=== PATIENT | female | born 1990 | race Caucasian/White ===

== ENCOUNTER 2016-08-03 21:37 | Emergency (ER) | payer MEDICAID, OTHER ==
[~2016-08-03] VITALS: Ht 162.6 cm; Wt 59.1 kg
[2016-08-03 21:54] VITALS: BP 110/75; PULSE 75; RESP 16; O2SAT 99
--- NOTE | 2016-08-03 23:44 | ED.REPORT ---
HPI-General Illness Date of Service Aug 03, 2016 ED Provider: Lalo Lombardi MD PT is a 26 year old female with a history of detox (4x) who presents to the ED wanting to go into detox for heroin, methamphetamine, cocaine, and Xanax. Pt also presents with diagnosed tonsillitis (onset 1 week ago), for which she was prescribed antibiotics for 5 days without improvement. She deniies any other symptoms. She reports that she was [facility] at 15:00, but she has not been provided any medication to help with her detox and presents to the ED for medication to help with her withdrawals while going through detox. The pt does not know when her last menstruation was, but she denies . Her last use of methadone was 12 days ago for 3 days. Her last use of heroin was at 16:00 via IV in her arm, and she also reports using methamphetamine this morning. She denies neck IV injections. The pt reports that typically she uses Xanax 2 mg/day and cocaine every 4 days. Seen [address] [facility] treated for "tonsillitis" on day #5of clindamycin. Nursing Notes Stated Complaint: SUBSTANCE ABUSE Chief Complaint: Substance Abuse Nursing Notes Reviewed: Yes Allergies: Coded Allergies: No Known Allergies (Unverified , 08/03/16) General Time Seen by MD: 23:43 Chief Complaint Other (Detox) Hx Obtained From: Patient Arrived By: Walk-in Sudden in Onset?: No Onset Occurred: Onset unknown Symptom Duration: Since onset Location: : Mouth Quality: Painful Severity: Current: Moderate Severity: Maximum: Moderate Recent Healthcare: No recent doctor visit, No recent hospitalization Similar Sx Previous: Yes Past Medical History Past Medical History Denies Denies: Congestive heart failure, Diabetes mellitus, Hypertension Past Surgical History Denies Smoking History Current Every Day Smoker Social History Alcohol Use: Denies alcohol use Drug Use: Cocaine, Meth, Xanax Other Social History: , Lives with children (3 year old daughter) Ambulatory Status Independent Review of Systems Full Review of Systems Constitutional: Denies: Fever Ears / Nose / Throat: Reports: Throat pain, Throat swelling Respiratory: Denies: Non-productive cough Complete sys rev & neg: except as marked. Physical Exam alert NAD normal phonation Vital Signs Vital Signs Date Time Temp Pulse Resp B/P Pulse Ox O2 Delivery O2 Flow Rate FiO2 08/04/16 02:00 36.8 76 18 103/69 100 Room Air 08/04/16 00:36 87 18 114/72 98 Room Air 08/03/16 21:54 36.9 75 16 110/75 99 Room Air Initial VS: Reviewed Neck: Full range of motion Respiratory: Breath sounds normal, Clear to auscultation, No respiratory distress Extremities: Vascular intact, Neuro intact Skin: Warm, Dry Neurologic: Alert, Oriented, Nonfocal General/Constitutional: Awake, Alert, Cooperative Head / Eyes: Atraumatic, Normocephalic Pupils are dilated. ENT: Atraumatic, Airway patent, Mucous membranes moist Peritonsillary abscess. Cardiovascular: Heart rate NL, Regular rhythm, Heart sounds NL, No gallop, No murmurs Interpretation & Diagnostics Lab Results Interpretation Test 08/04/16 00:25 Hold Purple Top Tube Received (Received) Hold Blue Top Tube Received (Received) Hold [place] Top Tube Received (Received) Re-Eval/Medical Decision Med Decision/Clinical Course 26-year-old female who is withdrawing from opiates. She also uses methamphetamine and benzodiazepines at times. From the story she gives me, I do not believe that her benzodiazepine use is frequent enough to make withdrawal risk. She does not appear to be withdrawing from benzos at this point. In addition she has a peritonsillar abscess. Given that she was started on clindamycin 5 days ago in [place] for this, it may be that the actual diagnosis at that time was peritonsillar abscess. We have given her IV fluids and steroids and Rocephin here. Will have 24-hour follow-up in the emergency department. I believe the patient is appropriate to return to crisis, we will send her back with Zofran and Imodium and a few Percocet for pain. Source of Hx: Old records Time of Eval: 01:40 Patient Status: Condition improved Re-Evaluation/Progress Note: Pt rechecked. Informed pt of plan for discharge. Pt understands and agrees with plan for discharge. F/U instructions and RTER warnings given. All questions addressed. Counseled Regarding: Diagnosis, Lab results, Need for follow-up, When/why to return to ED Discharge & Departure Primary Impression: Peritonsillar abscess Additional Impression: Opiate withdrawal Disposition: Home Discharge Condition All VS Reviewed: Yes Condition: Stable Patient Instructions: Peritonsillar Abscess (ED) Additional Instructions: Emergency department evaluation tonight included interview and examination. Sore throat is due to a left peritonsillar abscess. We gave IV fluids antibiotics and steroids this should help you feel better soon. Continue the clindamycin as prescribed previously. May use oxycodone/APAP one to 2 every 4- 6 hours as needed for pain. Recommend a cool soft diet. Return emergency department after 6 PM on Saturday for reevaluation. May use ondansetron as needed for nausea. Imodium as needed for diarrhea. Follow-up as outpatient with the Suboxone prescriber. Referrals: Memo Mosquera MD Attestation Portions of this note were transcribed by Rossy Tadeo. I, Dr. Lombardi personally performed the history, physical exam and medical decision-making; I reviewed and confirmed the accuracy of the information in the transcribed note. Signed by : Avery Swanson, 08/03/16 and 00:50. copies to: Memo Mosquera MD, Donald L MD Aug 03, 2016 23:44 Rossy Troy Aug 03, 2016 23:54
[2016-08-03] MEDS ORDERED: 0.9% Sodium Chloride 1,000 ML IV ONE (23:58)
[2016-08-04] MEDS ORDERED: _Ondansetron ODT 4 mg Tablet PO PRN
[2016-08-04] MEDS ORDERED: _oxyCODONE/APAP 5-325 mg Tablet PO PRN
[2016-08-04] MEDS ORDERED: Ondansetron 2 mg/mL 2 mL Inj IV PRN
[2016-08-04] MEDS ORDERED: Dexamethasone Inj 10 MG in 0.9% Sodium Chloride-Pha MIX 50 ML IV ONE ×2
[2016-08-04] MEDS ORDERED: cefTRIAXone Inj 2,000 MG in Dextrose 5% Minibag Plus 50 ML IV ONE ×2
[2016-08-04] MEDS ORDERED: HYDROmorphone 1 mg/mL Inj IVPUSH PRN
[2016-08-04 00:36] VITALS: BP 114/72; PULSE 87; RESP 18; O2SAT 98
[2016-08-04] MEDS ORDERED: 0.9% Sodium Chloride 1,000 ML IV ONE (01:05)
[2016-08-04 02:00] VITALS: BP 103/69; PULSE 76; RESP 18; O2SAT 100
[2016-08-05] MEDS ORDERED: CLON0.2T PO (05:40)
[2016-08-05] MEDS ORDERED: IBUP-1827 PO (05:40)
[2016-08-05] MEDS ORDERED: LOPE2TAB32 PO (05:40)
[2016-08-05] MEDS ORDERED: LORA1TAB PO (05:40)
[2016-08-05] MEDS ORDERED: ONDA-54 PO (05:40)
== END 2016-08-04 02:02 | disposition home or self-care (01) ==
LOC: SED 21:37
DX: J36 Peritonsillar abscess (principal); F11.23 Opioid dependence with withdrawal; F17.200 Nicotine dependence, unspecified, uncomplicated
CPT/HCPCS: 81025; 96361; 96365; 96375; 99285; J0696; J1100; J1170; J2405; J7030

== ENCOUNTER 2016-08-04 20:01 | Emergency (ER) | payer OTHER ==
[~2016-08-04] VITALS: Ht 162.6 cm; Wt 63.6 kg
[2016-08-04 20:12] VITALS: BP 136/91; RESP 20; O2SAT 99
--- NOTE | 2016-08-04 23:47 | ED.REPORT ---
HPI-General Illness Date of Service Aug 04, 2016 ED Provider: Chirag Griggs MD A 26 year old female with a history of polysubstance abuse presents to the ED complaining of throat pain. The pt has been experiencing this pain for several days and was seen in the ED yesterday. She was diagnosed with tonsillitis and prescribed clindamycin, but has been unable to take it consistently due to vomiting from withdrawal. The pt is currently staying at [facility] for detox from heroin. Nursing Notes Stated Complaint: THROAT PAIN Chief Complaint: ENT & Mouth Nursing Notes Reviewed: Yes Allergies: Coded Allergies: No Known Allergies (Unverified , 08/03/16) Scheduled PRN Clonidine (Clonidine) 0.2 Mg Tablet 0.2 MG PO TID PRN PRN Withdrawal Symptoms Ibuprofen (Ibuprofen) 600 Mg Tablet 600 MG PO QID PRN PRN For Pain Loperamide (Loperamide) 2 Mg Tablet 2 MG PO Q4H PRN PRN For Diarrhea or Loose Stool Lorazepam (Lorazepam) 1 Mg Tablet 1 MG PO HS PRN PRN For Insomnia Ondansetron (Ondansetron) 8 Mg Tablet 8 MG PO QID PRN PRN For Nausea General Time Seen by MD: 23:47 Chief Complaint Other (Throat pain) Hx Obtained From: Patient Arrived By: Walk-in Sudden in Onset?: No Symptom Duration: Since onset Recent Healthcare: No recent hospitalization, Recent doctor visit Similar Sx Previous: Yes Past Medical History Past Medical History none reported Past Surgical History none reported Smoking History Current Every Day Smoker Social History Alcohol Use: Denies alcohol use Drug Use: Cocaine, IV drugs (heroin), Meth, Xanax Other Social History: , Lives with children Ambulatory Status Independent Review of Systems Full Review of Systems Ears / Nose / Throat: Reports: Throat pain Cardiovascular: Denies: Chest pain GI: Reports: Nausea, Vomiting Musculoskeletal: Denies: Back pain Skin: Denies Rash Complete sys rev & neg: except as marked. Physical Exam Vital Signs Vital Signs Date Time Temp Pulse Resp B/P Pulse Ox O2 Delivery O2 Flow Rate FiO2 08/05/16 06:05 36.3 66 16 124/86 98 Room Air 08/05/16 04:26 76 18 131/96 99 Room Air 08/05/16 02:18 37.3 74 138/94 99 Room Air 08/04/16 20:12 36.7 87 20 136/91 99 Room Air Initial VS: Reviewed General/Constitutional: Awake, Alert actively vomiting Head / Eyes: Atraumatic, Normocephalic, PERRL, EOMI ENT: Atraumatic, Airway patent Mouth: Positive: Mucous membranes dry throat is erythematous tonsils mobile, left more prominent than right Neck: Atraumatic, Supple, Full range of motion Respiratory / Chest: Atraumatic, Breath sounds NL, Breath sounds = bilat, No respiratory distress Cardiovascular: Heart rate NL, Regular rhythm, Heart sounds NL Abdomen: Atraumatic, Soft, Non-tender Back: Atraumatic, Full range of motion Upper Extremities Upper Extremity / MS: Atraumatic, Full range of motion Lower Extremity / Pelvis / MS: Atraumatic, Full range of motion Skin: Atraumatic, Color NL, No rash, Warm, Dry Neurologic: Oriented X3, Speech NL, No motor deficits, No sensory deficits Psychiatric: Affect NL, Mood NL Interpretation & Diagnostics Lab Results Interpretation Result Diagram: 08/04/16 2321 08/04/16 2321 Test 08/04/16 23:21 08/05/16 01:43 White Blood Count 13.4th/mm3 (3.8-10.1) Red Blood Count 4.59mil/mm3 (3.90-5.20) Hemoglobin 13.7g/dL (12.0-15.6) Hematocrit 40.0% (35.0-46.0) Mean Corpuscular Volume 87.1fL (81-100) Mean Corpuscular Hemoglobin 29.8pg (27.0-35.0) Mean Corpuscular Hemoglobin Concent 34.3% (32.0-37.0) Red Cell Distribution Width 12.8% (12.3-15.4) Platelet Count 556bil/L (150-400) Neutrophils (%) (Auto) 78.0% (40-74) Lymphocytes (%) (Auto) 17.5% (14-46) Monocytes (%) (Auto) 3.9% (4-12) Eosinophils (%) (Auto) 0% (0-5) Basophils (%) (Auto) 0.1% (0-3) Hold Purple Top Tube Received (Received) Hold Blue Top Tube Received (Received) Sodium Level 137mEq/L (134-144) Potassium Level 4.1mEq/L (3.5-5.2) Chloride Level 93mEq/L (97-108) Carbon Dioxide Level 24mmol/L (18-29) Blood Urea Nitrogen 13mg/dL (6-20) Creatinine 0.55mg/dL (0.57-1.00) Estimat Glomerular Filtration Rate 190mL/min (>59) Glucose Level 108mg/dL (60-99) Calcium Level 10.5mg/dL (8.5-10.1) Total Bilirubin 0.3mg/dL (0.0-1.2) Aspartate Amino Transf (AST/SGOT) 19U/L (0-50) Alanine Aminotransferase (ALT/SGPT) 19U/L (0-32) Alkaline Phosphatase 85U/L (25-150) Total Protein 8.9g/dL (6.4-8.4) Albumin 4.6g/dL (3.4-5.0) Lipase 13U/L (13-60) Hold [place] Top Tube Received (Received) Hold [place] Top Tube Received (Received) Urine Color Yellow (YELLOW) Urine Appearance Cloudy (CLEAR,HAZY) Urine pH 6.5 (5.0-8.0) Urine Specific [place] 1.020 (1.003-1.035) Urine Protein 30mg/dL (NEG,TRACE) Urine Glucose (UA) Negativemg/dL (NEGATIVE) Urine Ketones >80mg/dL (NEGATIVE) Urine Occult Blood Negative (NEGATIVE) Urine Nitrite Negative (NEGATIVE) Urine Bilirubin Negative (NEGATIVE) Urine Urobilinogen Normalmg/dL (NORMAL) Urine Leukocyte Esterase Negative (NEGATIVE) Urine RBC 0-2/hpf (0-2) Urine WBC 0-5/hpf (0-5) Urine Epithelial Cells Many/hpf (NONE-MOD) Urine Crystals Amorphous urates (NONE Urine Bacteria Few/hpf (NONE-FEW) Urine Hyaline Casts None/lpf (NONE) Urine Granular Casts None seen (NONE SEEN) Urine Waxy Casts None seen (NONE SEEN) Urine Red Blood Cell Casts None seen (NONE SEEN) Urine White Blood Cell Casts None seen (NONE SEEN) Urine Mucus Present (None Seen) Urine Trichomonas None seen (NONE SEEN) Urine Yeast None (NONE SEEN) Urinalysis Comment None Urine Culture Reflexed Not indicated Re-Eval/Medical Decision Med Decision/Clinical Course 26-year-old in active withdrawal from heroin, presents vomiting actively and unable to keep down prescribed meds for which rales, as well as for her sore throat. Given Subutex here with relief of her immediate withdrawal symptoms. She is now able to keep down clonidine. She was given Rocephin 2 g IV and some Decadron for her sore throat. Now taking fluids and meds without difficulty. Discharge back to crisis in stable condition. Source of Hx: Old records Time of Eval: 01:22 Re-Evaluation/Progress Note: Pt rechecked, who is no longer actively retching. Further physical exam is performed. Time of Eval: 05:33 Re-Evaluation/Progress Note: Pt rechecked, who is resting comfortably. The diagnosis and plan for discharge are discussed. The pt understands and agrees with the plan. All questions are addressed at this time. Counseled Regarding: Diagnosis, Lab results, Need for follow-up, When/why to return to ED Discharge & Departure Primary Impression: Pharyngitis Pharyngitis/tonsillitis etiology: unspecified etiology Qualified Code: J02.9 - Acute pharyngitis, unspecified Additional Impression: Opiate withdrawal Disposition: Home Discharge Condition All VS Reviewed: Yes Condition: Stable Patient Instructions: Pharyngitis (ED) Additional Instructions: Clonidine one tablet 2-3 times daily as needed for withdrawal symptoms Ativan as needed at night for sleep Zofran four times daily as needed for nausea Loperamide if needed for diarrhea, up to every two hours Ibuprofen as needed for pain, every six hours. Resume your clindamycin tomorrow. Referrals: [facility] [place] Attestation Portions of this note were transcribed by Surinder Lang. I, Dr. Griggs personally performed the history, physical exam and medical decision-making; I reviewed and confirmed the accuracy of the information in the transcribed note. Signed by: Avery Leal, 08/05/2016 and [id number]. copies to: [facility] Chirag Griggs MD Aug 04, 2016 23:47 SURINDER LANG Aug 04, 2016 23:57
[2016-08-04] MEDS ORDERED: 0.9% Sodium Chloride 1,000 ML IV ONE ×2 (23:52→23:55)
[2016-08-04] MEDS ORDERED: Buprenorphine 2 mg SL Tablet SL ONE (23:55)
[2016-08-04] MEDS ORDERED: Ondansetron 2 mg/mL 2 mL Inj IVPUSH ONE (23:55)
[2016-08-04] MEDS ORDERED: Pantoprazole 4 mg/mL 10 mL Inj IVPUSH ONE (23:55)
[2016-08-05 00:02] LABS: BASOPHILS % (AUTO) 0.1 % (0-3); EOSINOPHILS % (AUTO) 0 % (0-5); MONOCYTES % (AUTO) 3.9 % (4-12); Mean Corpuscular Hemoglobin 29.8 pg (27.0-35.0); Mean Corpuscular Volume 87.1 fL (81-100); Platelet Count 556 bil/L (150-400)
[2016-08-05] MEDS ORDERED: Dexamethasone Inj 20 MG in 0.9% Sodium Chloride-Pha MIX 50 ML IV ONE (01:25)
[2016-08-05] MEDS ORDERED: cefTRIAXone Inj 2,000 MG in Dextrose 5% Minibag Plus 50 ML IV ONE (01:25)
[2016-08-05 02:02] LABS: APPEARANCE,URINE CLOUDY (CLEAR,HAZY); COLOR,URINE YELLOW (YELLOW); OCCULT BLOOD,URINE NEGATIVE (NEGATIVE); PH,URINE 6.5 (5.0-8.0); UROBILINOGEN,URINE NORMAL (NORMAL)
[2016-08-05 02:18] VITALS: BP 138/94; PULSE 74; O2SAT 99
[2016-08-05 04:26] VITALS: BP 131/96; PULSE 76; RESP 18; O2SAT 99
[2016-08-05] MEDS ORDERED: ONDA-54 PO (05:40)
[2016-08-05] MEDS ORDERED: IBUP-1827 PO (05:40)
[2016-08-05] MEDS ORDERED: LORA1TAB PO (05:40)
[2016-08-05] MEDS ORDERED: LOPE2TAB32 PO (05:40)
[2016-08-05] MEDS ORDERED: CLON0.2T PO (05:40)
[2016-08-05 06:05] VITALS: BP 124/86; PULSE 66; RESP 16; O2SAT 98
== END 2016-08-05 06:06 | disposition home or self-care (01) ==
LOC: SED 20:01
DX: J02.9 Acute pharyngitis, unspecified (principal); F11.23 Opioid dependence with withdrawal; F17.200 Nicotine dependence, unspecified, uncomplicated
CPT/HCPCS: 80053; 81000; 83690; 85025; 96361; 96365; 96375; 99285; J0696; J1100; J1885; J2405; J7030

== ENCOUNTER 2016-10-22 00:21 | Emergency (ER) | payer OTHER ==
[~2016-10-22] VITALS: Ht 162.6 cm; Wt 61.4 kg
[~2016-10-22 00:21] MED LIST: CLON0.2T PO; IBUP-1827 PO; LOPE2TAB32 PO; LORA1TAB PO; ONDA-54 PO
[2016-10-22 00:27] VITALS: BP 131/90; PULSE 71; RESP 16; O2SAT 98
--- NOTE | 2016-10-22 00:35 | ED.REPORT ---
HPI-Abd Pain F Under 40 Date of Service Oct 22, 2016 ED Provider: Dr. Griggs Pt is a 26 year old female with a hx of IV cocaine use presenting to the ED complaining of sudden onset right upper quadrant abdominal pain onset 3 hours ago right after eating apple crisp. She denies any previous hx of gallstones. Associated symptoms include vomiting. Denies fever, chills, SOB or wheezing. She states that she has not used drugs in 2 months. She was seen at the [facility] about 5 days ago to be cleared for prison care at a drug detox facility. Nursing Notes Stated Complaint: ABDOMINAL PAIN Chief Complaint: Female Abdominal Pain Nursing Notes Reviewed: Yes Allergies: Coded Allergies: No Known Allergies (Unverified , 08/03/16) Scheduled Cefuroxime Axetil (Cefuroxime) 500 Mg Tablet 500 MG PO BID Omeprazole (Omeprazole) 20 Mg Tablet.dr 20 MG PO DAILY Scheduled PRN Clonidine (Clonidine) 0.2 Mg Tablet 0.2 MG PO TID PRN PRN Withdrawal Symptoms Ibuprofen (Ibuprofen) 600 Mg Tablet 600 MG PO QID PRN PRN For Pain Loperamide (Loperamide) 2 Mg Tablet 2 MG PO Q4H PRN PRN For Diarrhea or Loose Stool Lorazepam (Lorazepam) 1 Mg Tablet 1 MG PO HS PRN PRN For Insomnia Ondansetron (Ondansetron) 8 Mg Tablet 8 MG PO QID PRN PRN For Nausea Tramadol (Tramadol) 50 Mg Tablet 100 MG PO Q6H PRN PRN For Pain General Time Seen by MD: 00:35 Chief Complaint Abdominal pain Hx Obtained From: Patient Arrived By: Walk-in Sudden in Onset?: Yes Onset Occurred: 1 - 4 hours ago Context of Onset: Eating Symptom Duration: Since onset Progression since Onset: Constant Location: : RUQ Quality: Painful Severity: Current: Severe Severity: Maximum: Severe Recent Healthcare: No recent doctor visit, No recent hospitalization Similar Sx Previous: No Past Medical History Past Medical History none reported Past Surgical History none reported Smoking History Current Every Day Smoker Social History Alcohol Use: Denies alcohol use Drug Use: Cocaine, IV drugs, Meth, Xanax Other Social History: , Lives with children Ambulatory Status Independent Review of Systems Constitutional: Denies: Chills, Fever Respiratory: Denies: Shortness of breath, Wheezing GI: Reports: Abdominal pain, Nausea, Vomiting Complete sys rev & neg: except as marked. Physical Exam Initial Vital Signs Vital Signs (First) Date Time Temp Pulse Resp B/P Pulse Ox O2 Delivery O2 Flow Rate FiO2 10/22/16 00:27 36.4 71 16 131/90 98 10/22/16 04:15 Room Air Initial VS: Reviewed Head / Eyes: Atraumatic, Normocephalic, PERRL ENT: Mucous membranes moist, Conjunctiva normal, No scleral icterus Extremities: Vascular intact, Neuro intact, No swelling, No tenderness Neurologic: Alert, Oriented, Nonfocal Psychiatric: Mood/affect normal, Behavior normal, Normal thought content General/Constitutional: Awake, Alert Respiratory / Chest: Atraumatic, Breath sounds NL, Breath sounds = bilat, No respiratory distress Cardiovascular: Heart rate NL, Regular rhythm, Heart sounds NL Abdomen: Atraumatic, BS normoactive Tenderness/Guarding/Rebound: Positive: Tender RUQ... (Severe) Back: Atraumatic, Inspection NL Interpretation & Diagnostics Lab Results Interpretation Result Diagram: 10/22/16 0107 10/22/16 0107 Test 10/22/16 01:07 10/22/16 01:22 White Blood Count 18.4th/mm3 (3.8-10.1) Red Blood Count 4.72mil/mm3 (3.90-5.20) Hemoglobin 14.4g/dL (12.0-15.6) Hematocrit 41.8% (35.0-46.0) Mean Corpuscular Volume 88.6fL (81-100) Mean Corpuscular Hemoglobin 30.5pg (27.0-35.0) Mean Corpuscular Hemoglobin Concent 34.4% (32.0-37.0) Red Cell Distribution Width 13.8% (12.3-15.4) Platelet Count 460bil/L (150-400) Neutrophils (%) (Auto) 59% (40-74) Lymphocytes (%) (Auto) 31% (14-46) Monocytes (%) (Auto) 9% (4-12) Eosinophils (%) (Auto) 1% (0-5) Basophils (%) (Auto) 0% (0-3) Hematology Comments Prothrombin Time 9.3sec (8.1-12.5) Prothromb Time International Ratio 0.87ratio Sodium Level 140mEq/L (134-144) Potassium Level 4.4mEq/L (3.5-5.2) Chloride Level 98mEq/L (97-108) Carbon Dioxide Level 25mmol/L (18-29) Blood Urea Nitrogen 17mg/dL (6-20) Creatinine 0.72mg/dL (0.57-1.00) Estimat Glomerular Filtration Rate 139mL/min (>59) Glucose Level 101mg/dL (60-99) Calcium Level 9.8mg/dL (8.5-10.1) Magnesium Level 2.2mg/dL (1.6-2.6) Total Bilirubin 0.2mg/dL (0.0-1.2) Aspartate Amino Transf (AST/SGOT) 16U/L (0-50) Alanine Aminotransferase (ALT/SGPT) 27U/L (0-32) Alkaline Phosphatase 74U/L (25-150) Total Protein 7.4g/dL (6.4-8.4) Albumin 4.4g/dL (3.4-5.0) Lipase 46U/L (13-60) Hold [place] Top Tube Received (Received) Urine Color Yellow (YELLOW) Urine Appearance Cloudy (CLEAR,HAZY) Urine pH 6.5 (5.0-8.0) Urine Specific [place] 1.015 (1.003-1.035) Urine Protein Negativemg/dL (NEG,TRACE) Urine Glucose (UA) Negativemg/dL (NEGATIVE) Urine Ketones Negativemg/dL (NEGATIVE) Urine Occult Blood Trace (NEGATIVE) Urine Nitrite Negative (NEGATIVE) Urine Bilirubin Negative (NEGATIVE) Urine Urobilinogen Normalmg/dL (NORMAL) Urine Leukocyte Esterase Small (NEGATIVE) Urine RBC 0-2/hpf (0-2) Urine WBC 6-10/hpf (0-5) Urine Epithelial Cells Few/hpf (NONE-MOD) Urine Crystals Amorphous urates (NONE Urine Bacteria Few/hpf (NONE-FEW) Urine Hyaline Casts None/lpf (NONE) Urine Granular Casts None seen (NONE SEEN) Urine Waxy Casts None seen (NONE SEEN) Urine Red Blood Cell Casts None seen (NONE SEEN) Urine White Blood Cell Casts None seen (NONE SEEN) Urine Mucus Present (None Seen) Urine Trichomonas None seen (NONE SEEN) Urine Yeast None (NONE SEEN) Urinalysis Comment None Urine Culture Reflexed Indicated CT Abd / Pelvis Interpretation CONCLUSION: No CT evidence of acute intra-abdominal pathology only questionable wall thickening of the gallbladder. This could be further evaluated with ultrasound if the patient has right upper quadrant pain. This report was transmitted to the emergency room at 10/22/2016 - 2:38:43 AM PDT. Interpretation / Wet Read by: Interpret - Radiologist Re-Eval/Medical Decision Med Decision/Clinical Course Med Decision/Clinical Course: 26-year-old with a history of IV cocaine abuse and two months of right knee since, presents with right quadrant abdominal pain after eating apple crisp. Pain is subsided slowly here. LFTs were unremarkable. White count is elevated at 18,000. Urinalysis incidentally positive for UTI. CT abdomen and pelvis shows thickening of gallbladder wall without visible stones, but CT is notoriously insensitive for noncalcified stones. Suspect she has gallbladder disease and that this is biliary colic. Low fat diet. Home with tramadol, Zofran, and follow up with PCP for ultrasound fasting a.m. study. Discharged with Ceftin for UTI. Re-Evaluation/Progress : Time of Eval: 03:16 Patient Status: Condition improved Re-Evaluation/Progress Note: Discussed CT results and plan for discharge. Pt understands and agrees with plan. Counseled Regarding: Diagnosis, Lab results, Need for follow-up, When/why to return to ED Discharge & Departure Primary Impression: Biliary colic Additional Impressions: Urinary tract infection Urinary tract infection type: site unspecified Hematuria presence: without hematuria Qualified Code: N39.0 - Urinary tract infection, site not specified Intravenous drug abuse Disposition: Home Discharge Condition All VS Reviewed: Yes Condition: Improved Patient Instructions: Biliary Colic (ED), Low Fat Diet (ED), Urinary Tract Infection in Women (ED) Additional Instructions: I suspect to have biliary stones not seen on CT. This requires a fasting morning ultrasound to evaluate further. Contact your doctor in the office to arrange that test. Eat very low fat diet. Avoid stimulating the gallbladder to avoid episodes like this. Begin omeprazole daily. For the urinary tract infection, Begin Ceftin twice daily for seven days. Referrals: OTHER,PHYSICIAN Scribe Attestation Portions of this note were transcribed by Sherry Farrar. I, Dr. Griggs personally performed the history, physical exam and medical decision-making; I reviewed and confirmed the accuracy of the information in the transcribed note. Signed by: Avery Rodriguez, 10/21/2016. Chirag Griggs MD Oct 22, 2016 00:35 SHERRY FARRAR Oct 22, 2016 00:46
[2016-10-22] MEDS ORDERED: 0.9% Sodium Chloride 1,000 ML IV ONE (00:49)
[2016-10-22] MEDS ORDERED: Ondansetron 2 mg/mL 2 mL Inj IVPUSH ONE (00:50)
[2016-10-22 01:12] LABS: Mean Corpuscular Hemoglobin 30.5 pg (27.0-35.0); Mean Corpuscular Volume 88.6 fL (81-100); Platelet Count 460 bil/L (150-400)
[2016-10-22 01:27] LABS: INR 0.87 ratio
[2016-10-22 01:28] LABS: BASOPHILS % (AUTO) 0 % (0-3); EOSINOPHILS % (AUTO) 1 % (0-5); MONOCYTES % (AUTO) 9 % (4-12); NEUTROPHILS % (AUTO) 59 % (40-74)
[2016-10-22 01:32] LABS: APPEARANCE,URINE CLOUDY (CLEAR,HAZY); COLOR,URINE YELLOW (YELLOW); OCCULT BLOOD,URINE TRACE (NEGATIVE); PH,URINE 6.5 (5.0-8.0); UROBILINOGEN,URINE NORMAL (NORMAL)
[2016-10-22 01:46] LABS: Magnesium 2.2 mg/dL (1.6-2.6)
[2016-10-22] MEDS ORDERED: OMEP20TA86 PO (03:25)
[2016-10-22] MEDS ORDERED: CEFU500T61 PO (03:25)
[2016-10-22] MEDS ORDERED: TRAM50TA2 PO (04:14)
[2016-10-22 04:15] VITALS: BP 137/89; PULSE 76; RESP 16; O2SAT 99
--- NOTE | 2016-10-22 09:34 | DRSVH ---
PROCEDURE: CT ABDOMEN AND PELVIS WITH CONTRAST ([id number]) INDICATIONS: ruq pain, 18k wbcs TECHNIQUE: After the administration of intravenous contrast, 5 mm thick sections acquired from the diaphragm to the symphysis. 5 mm coronal and sagittal reformats were acquired. For radiation dose reduction, the following was used: automated exposure control, adjustment of mA and/or kV according to patient siz e. COMPARISON: None. FINDINGS: Preliminary report by [facility] radi[facility] Image quality: Excellent. ABDOMEN: Lung bases: Lung bases are clear. Heart size is normal. Solid organs: Liver and spleen are normal in size and enhancement. Gallbladder appears clear. Bili chris system is non dilated. Pancreas enhances normally. No adrenal nodules. Kidneys demonstrate nor mal size and enhancement, without hydronephrosis. Peritoneum and bowel: Bowel loops demonstrate normal wall thickness and caliber. The appendix is nor mal, series 3/image 33. No free fluid or air. Nodes and vessels: No retroperitoneal or mesenteric adenopathy by size criteria. Aorta and inferior vena cava are normal in size. Miscellaneous: No ventral hernias. PELVIS: Genitourinary: Bladder wall thickness is normal. Uterus and ovaries appear normal Miscellaneous: No inguinal hernias or adenopathy. Bones: No suspicious bony lesions. No vertebral body compression fractures. IMPRESSION: 1. No acute findings in the abdomen or pelvis to correlate with right upper quadrant pain. No evidenc e of gallstones however abdominal ultrasound recommended for further evaluation of the gallbladder if clinically indicated. 2. Normal appendix is identified. No inflammatory bowel disease is evident. Findings are concordant with the preliminary report. Dictated by: Otto Larson M.D. on 10/22/2016 at 9:26 Approved by: Otto Larson M.D. on 10/22/2016 at 9:32
== END 2016-10-22 04:16 | disposition home or self-care (01) ==
LOC: SED 00:21
DX: K80.50 Calculus of bile duct without cholangitis or cholecystitis without obstruction (principal); N39.0 Urinary tract infection, site not specified; F19.10 Other psychoactive substance abuse, uncomplicated; F17.200 Nicotine dependence, unspecified, uncomplicated
CPT/HCPCS: 36415; 74177; 80053; 81000; 81025; 83690; 83735; 85025; 85610; 87086; 87088; 96361; 96374; 96375; 99285; J1885; J2405; J7030; Q9967